=== PATIENT | female | born 1990 | race Caucasian/White ===

== ENCOUNTER 2020-11-25 11:14 | Outpatient (CLI) | payer BC, SELFPAY ==
--- NOTE | 2020-11-25 11:30 | MM_ITS ---
WS: [id number] DIAGNOSTIC BILATERAL DIGITAL MAMMOGRAM WITH implant displacement views and CAD LEFT breast ultrasound, limited HISTORY: N63.21 - Unspecified lump in the left breast, upper outer... COMPARISON: 05/30/2016 TECHNIQUE: Bilateral craniocaudad, mediolateral oblique, and mediolateral views are submitted. Implan t displacement views also. Computer aided detection utilized. Breast composition: The breasts are heterogeneously dense, which may obscure small masses. Ovoid mass measuring 18 x 10 mm in the superior LEFT breast corresponds to the palpable abnormality towards the axillary tail. The breast implants are intact and retropectoral. No additional suspicious findings. LEFT breast ultrasound. There is solid mass with slight increased vascularity at 1:00 LEFT breast 4 cm from the nipple. This corresponds to the mammographic abnormality and palpable abnormality. Mass measures 1.3 x 1.3 x 1.4 c m. No additional abnormalities or axillary lymph nodes. MM/[place] [id number] IMPRESSION: BI-RADS: 4-Suspicious Finding-Biopsy Should Be Considered FOLLOW UP: Biopsy Recommended Ultrasound-guided biopsy recommended of the LEFT breast mass at 1:00. Notified LYNDSAY Jaeger at 11/25/2020 2:11 PM.
--- NOTE | 2020-11-25 11:55 | US_ITS ---
WS: [id number] DIAGNOSTIC BILATERAL DIGITAL MAMMOGRAM WITH implant displacement views and CAD LEFT breast ultrasound, limited HISTORY: N63.21 - Unspecified lump in the left breast, upper outer... COMPARISON: 05/30/2016 TECHNIQUE: Bilateral craniocaudad, mediolateral oblique, and mediolateral views are submitted. Implan t displacement views also. Computer aided detection utilized. Breast composition: The breasts are heterogeneously dense, which may obscure small masses. Ovoid mass measuring 18 x 10 mm in the superior LEFT breast corresponds to the palpable abnormality towards the axillary tail. The breast implants are intact and retropectoral. No additional suspicious findings. LEFT breast ultrasound. There is solid mass with slight increased vascularity at 1:00 LEFT breast 4 cm from the nipple. This corresponds to the mammographic abnormality and palpable abnormality. Mass measures 1.3 x 1.3 x 1.4 c m. No additional abnormalities or axillary lymph nodes. US/US breast LT limited* [id number] IMPRESSION: BI-RADS: 4-Suspicious Finding-Biopsy Should Be Considered FOLLOW UP: Biopsy Recommended Ultrasound-guided biopsy recommended of the LEFT breast mass at 1:00. Notified LYNDSAY Jaeger at 11/25/2020 2:11 PM.
== END 2020-11-25 11:15 | disposition home or self-care (01) ==
LOC: RADSHAW 11:18
PROVIDERS: Family Provider Nurse Practitioner Family; PCP Registered Nurse; Visit Provider Registered Nurse
DX: N63.21 Unspecified lump in the left breast, upper outer quadrant (principal)
CPT/HCPCS: 76642; 77066

== ENCOUNTER 2020-12-05 08:01 | Outpatient (CLI) | payer BC, SELFPAY ==
--- NOTE | 2020-12-05 08:30 | US_ITS ---
WS: [id number] ULTRASOUND-GUIDED LEFT BREAST BIOPSY CLINICAL INFORMATION: Left breast mass at 1:00 with increased vascularity. COMPARISON: None. FINDINGS: The procedure including risks, benefits, and complications were discussed with the patient who agreed to proceed. Using sterile technique patient was prepped and draped in the usual sterile fashion. Aft er 1% lidocaine utilizing real-time ultrasound guidance 5 14-gauge cores were obtained of the left br east lesion at the 1 o'clock position. Subsequently a titanium clip was placed in the biopsy cavity. No immediate complications. Pathology demonstrates fibroadenoma US/[place] [id number] IMPRESSION: 1. Uncomplicated ultrasound-guided left breast biopsy. 2. The pathology demonstrates fibroadenoma. BI-RADS: 2-Benign FOLLOW UP: 1 Year Follow-up Recommend follow-up left breast ultrasound in one year to confirm stability. Al ternatively lesion could be surgically removed if desired.
== END 2020-12-05 08:02 | disposition home or self-care (01) ==
PROVIDERS: PCP Registered Nurse
DX: N63.21 Unspecified lump in the left breast, upper outer quadrant (principal); D24.2 Benign neoplasm of left breast
CPT/HCPCS: 19083; 88305

== ENCOUNTER 2022-02-16 08:38 | Outpatient (CLI) | payer SELFPAY ==
--- NOTE | 2022-02-16 08:50 | US_ITS ---
WS: [id number] ULTRASOUND LEFT BREAST HISTORY: Benign neoplasm LEFT breast. Prior biopsy revealed fibroadenoma. COMPARISON: 12/05/2020 and 11/25/2020 TECHNIQUE: 2-D and Doppler. Well-circumscribed hypoechoic occult mass in the LEFT breast at 1:00, 4 cm from the nipple. Mass musa ures 1.5 x 1.4 x 1.0 cm. There is some very mild increased vascularity. US/[place] breast [place] complete [id number] IMPRESSION: BI-RADS: 2-Benign FOLLOW-UP: See Report LEFT breast benign fibroadenoma. No additional evaluation necessary unless the re is a change in size of this fibroadenoma.
== END 2022-02-16 08:39 | disposition home or self-care (01) ==
LOC: RAD 08:40
PROVIDERS: PCP Registered Nurse; Visit Provider Registered Nurse
DX: D24.2 Benign neoplasm of left breast (principal)
CPT/HCPCS: 76641

== ENCOUNTER → 2022-10-02 10:16 | Outpatient (BNVA) | payer SELFPAY | PROVIDERS: PCP Registered Nurse; Visit Provider Dermatology | DX: Z01.89 Encounter for other specified special examinations (principal) ==

== ENCOUNTER 2023-12-09 12:35 | Outpatient (CLI) | payer MEDICAID, SELFPAY ==
--- NOTE | 2023-12-09 12:39 | MM_ITS ---
WS: [id number] BILATERAL 3D TOMOSYNTHESIS DIGITAL DIAGNOSTIC MAMMOGRAPHY WITH CAD CLINICAL INFORMATION: CHANGE OF SKIN OF BREAST HISTORY: History of breast implant removal. History of LEFT breast fibroadenoma with previous biopsy and clip placement. Bruising mid sternum. COMPARISON: 02/16/2022 TECHNIQUE: Bilateral CC, MLO, and ML views. FINDINGS: Interval removal of breast implants. Scattered fibroglandular densities bilaterally. Lobulated ovoid nodule LEFT breast measuring 1.6 cm w ith adjacent biopsy clip. This is compatible with previous fibroadenoma diagnosis. Ultrasound will be performed to confirm stability. Spot compression views of the midsternal area of bruising. No parenchymal abnormalities in this area. Ultrasound is pending. RIGHT breast is unremarkable and unchanged. ULTRASOUND BREAST LEFT TECHNIQUE: Ultrasound left breast focused area of concern. CLINICAL INFORMATION: CHANGE OF SKIN OF BREAST FINDINGS: Ultrasound LEFT breast at the 1 o'clock position 4 cm from the nipple. Again seen is the hypoechoic w ell-circumscribed fibroadenoma with associated biopsy clip. This measures 1.5 x 0.9 x 1.3 cm unchange d compared to previous. Ultrasound mid sternum area of concern demonstrates normal underlying subcutaneous tissue. No cystic or solid lesions. No suspicious findings. MM/[place] [id number] IMPRESSION: BI-RADS: 2-Benign FOLLOW UP: Age 39 Recommend annual screening mammography age 39
== END 2023-12-09 12:36 | disposition home or self-care (01) ==
LOC: RAD 12:35
PROVIDERS: PCP Nurse Practitioner Family; Visit Provider Nurse Practitioner Family
DX: R23.4 Changes in skin texture (principal); R92.323 Mammographic fibroglandular density, bilateral breasts; N63.21 Unspecified lump in the left breast, upper outer quadrant
CPT/HCPCS: 76642; 77062; G0279